=== PATIENT | male | born 1960 | race Caucasian/White ===

== ENCOUNTER 2016-08-15 16:25 | Emergency (ER) | payer SELFPAY ==
[~2016-08-15] VITALS: Ht 180.3 cm; Wt 86.2 kg
[~2016-08-15 16:25] MED LIST: CLIN300C86 PO
[2016-08-15 17:17] VITALS: BP 123/69
[2016-08-15] MEDS ORDERED: KETOROLAC 30 MG/ML VIAL. IV ONE (17:45)
[2016-08-15] MEDS ORDERED: IV NORMAL SALINE 1,000ML 1,000 ML IV ONE (17:45)
[2016-08-15] MEDS ORDERED: ORPHENADRINE CITRATE 60 MG/2 ML VIAL. IV ONE (17:45)
--- NOTE | 2016-08-15 17:52 | PHYS DOC ---
General Chief Complaint: HEADACHE Stated Complaint: HEADACHE,VOMITING Time Seen by MD: 17:19 Source: patient Problems: History of Present Illness Initial Comments Patient here for headache. He says his headache has been going on for 3 days. He says over the top of the head and wraps around back towards the neck. She has had a headache like this before intermittently over the last 6 months. He usually is able take some [id number] medication, rest in a dark room, and drink cold coconut usually goes away. However, this has not gone away over the last several days despite these measures. He is also taking oxycodone he had left over from some surgery without help. He has no recent history of injury or trauma, that ascites headache seemed to start after getting hit with a steel door about 6 months ago. He says he still is a nontobacco his head from that. He 's had no fever or chills with this. There is no runny nose or sore throat. There is no vision or speech changes. He has no neck pain other than his radiates from the head. There is no chest pain or shortness of breath. He says he did have some vomiting last night and once this morning, but otherwise is been able tolerate some by mouth fluids today. He is really not had anything to eat. He has no abdominal pain with vomiting. There is no change in bowel or bladder habits. He says he feels somewhat unsteady on his feet but there is no focal extremity or neurologic complaints. Patient's used multiple measures at home including warm and cold packs, drinking soda, and voti-nym-fkyhvji medication at home without help. There is no other increased or decreasing factors noted. Patient's past medical history is otherwise unremarkable. He is a nonsmoker. He is an occasional social user of ethanol on vacation and just finished a two-week vacation in [place] during which he drank about 5 beers per day. He denies drug use. Allergies: Coded Allergies: No Known Drug Allergies (Unverified , 08/15/16) Past Medical History Medical History: no pertinent history Social History Smoker: non-smoker Alcohol: other Drugs: none Review of Systems All Other Systems: Reviewed and Negative Physical Exam General Appearance: WD/WN, no apparent distress Eyes: bilateral eye EOMI, bilateral eye PERRL, bilateral eye normal inspection Ear, Nose, Throat: normal ENT inspection, normal pharynx, other Neck: full range of motion, supple, normal inspection Respiratory: lungs clear, normal breath sounds, no respiratory distress Cardiovascular: regular rate, rhythm, no edema Gastrointestinal: non tender, soft, no organomegaly Back: no CVA tenderness, no vertebral tenderness Extremities: non-tender, normal inspection, no pedal edema 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 Vitals are as noted. Pertinent findings on physical exam shows a head atraumatic normocephalic. He is somewhat tender over the occipital condyles bilaterally, one does get the sense of a small irregularity on the left occipital region which she states is the "lump" from his injury 6 months ago. The neck itself is supple without adenopathy or JVD. There's no vertebral or paraspinal tenderness. Chest is clear and cardiovascular exam is unremarkable. Back shows no CVA tenderness and no vertebral bony tenderness. Abdomen is soft and nontender without masses or organomegaly. There is no perineal findings. External show no rash cyanosis or edema. Neurologic exam shows the patient awake alert oriented 4. Cranial nerves II through XII grossly intact. Strength 5 over 5 equal all sites tested. There are no gross sensory deficits. Patient stands without difficulty and while the patient has wave or REM the point, Romberg is essentially negative. Remainder of physical exam is clinically unremarkable. Orders, Labs, Meds Old charts note a single prior ER visit for cellulitis. CT scan of the head shows no acute changes per radiology. 1855 Patient resting comfortably, sleeping in the ER. He says he had his headache is somewhat improved. I discussed with the patient is uncertain cause of his headache. Think this may be muscle tension in nature. There is certainly no acute findings, and he appears to be neurologically intact. I discussed with him that if his headaches are persisting, he may require an MRI at some point to evaluate for any could've scarring or other damage from his injury 6 months ago, but at this point there is no acute ongoing issues of the car further evaluation and care. I think we will try to treat his headache at home was appropriate medication for pain as well as a muscle relaxer and something for nausea. He voices understanding need to follow up with primary care or return to the ER sooner as needed if worsening anyway. He does have a ride home. He looks well, in no acute discomfort distress, neurologically intact, okay for discharge home at this time. SANDRINE CHASE MD Aug 15, 2016 17:52
--- NOTE | 2016-08-15 18:43 | RAD ---
PROCEDURE CT head without contrast. HISTORY Severe headache x3 days. Six months ago hit head on door. TECHNIQUE Helical CT imaging of the brain is performed without IV contrast. PQRS: One or more the following individualized dose reduction techniques were utilized for the study: 1. Automated exposure control. 2. Adjustment of the mA and/or kV according to patient size. 3. Use of iterative reconstruction technique. COMPARISON CT head without contrast January 06, 2009. FINDINGS There is no midline shift or mass effect. No extra-axial fluid collection or intraparenchymal hemorrhage. Rodríguez-white matter differentiation is preserved. Ventricles and sulci are normal for patient age. The visualized paranasal sinuses and mastoid air cells are clear. The globes and orbits appear intact. No acute calvarial abnormality. IMPRESSION No acute intracranial abnormality. Electronically signed by: Steve Lao MD (Aug 15, 2016 18:41:59)
== END 2016-08-15 19:27 | disposition home or self-care (01) ==
LOC: ER 16:25
DX: R51 Headache (principal); R11.10 Vomiting, unspecified
CPT/HCPCS: 70450; 96361; 96374; 96375; 99284; J1885; J2360; J7030